=== PATIENT | female | born 1935 | race Caucasian/White ===

== ENCOUNTER → 2016-11-26 | Outpatient (CLI) | payer MEDICARE ==
[2016-11-26 13:10] LABS: Basophils # (A) 0.1 k/uL (0-0.2); Basophils % (A) 1 %; CHCM 31.7; Eosinophils # (A) 0.1 k/uL (0-0.7); Eosinophils % (A) 2 %; HCT 37.3 % (34.0-46.0); HDW 2.57; HGB 12.1 gm/dL (11.4-16.0); Luc # (Auto) 0.15; Luc % (Auto) 2; Lymphocytes # (A) 1.2 k/uL (1.0-4.8); Lymphocytes % (A) 18 %; MCH 30.9 pg (25.0-35.0); MCHC 32.5 g/dL (31.0-37.0); Mean Platelet Volume 8.6; Monocytes # (A) 0.4 k/uL (0-1.0); Monocytes % (A) 5 %; Neutrophils # (A) 4.9 k/uL (1.3-7.7); Neutrophils % (A) 72 %; RBC 3.93 m/uL (3.80-5.40); RDW 13.4 % (11.5-15.5); WBC 6.7 k/uL (3.8-10.6); WBC (Perox) 7.38
[2016-11-26 13:16] LABS: INR 1.2 (<1.1); Partial Thromboplastin Time 27.6 sec (22.0-30.0); Prothrombin Time 11.6 sec (9.0-12.0)
[2016-11-26 13:28] LABS: ALT 23 U/L (9-52); AST 19 U/L (14-36); Alkaline Phosphatase 74 U/L (38-126); Anion Gap 10 mmol/L; Blood Urea Nitrogen 18 mg/dL (7-17); Carbon Dioxide 30 mmol/L (22-30); Chloride 103 mmol/L (98-107); Glucose 69 mg/dL (74-99); Non-African American GFR(MDRD) >60 (>60 ml/min/1.73 sqM); Potassium 5.1 mmol/L (3.5-5.1); Sodium 143 mmol/L (137-145); Total Bilirubin 0.6 mg/dL (0.2-1.3); Total Protein 7.4 g/dL (6.3-8.2)
[2016-11-26 14:48] LABS: Amorphous Sediment,Urine Rare /hpf; Appearance,Urine Clear (Clear); Bacteria,Urine Many /hpf; Bilirubin,Urine Negative (Negative); Glucose,Urine (UA) Negative (Negative); Ketones,Urine Negative (Negative); Leukocyte Esterase,Urine Small (Negative); Nitrite,Urine Negative (Negative); Particle Count 15703; Protein,Urine Negative (Negative); RBC,Urine 4 /hpf (0-5); Squamous Epithelial Cell,Urine 2 /hpf (0-4); UA Billing (MACRO vs. MICRO) MICRO; Urobilinogen,Urine <2.0 mg/dL (<2.0); WBC,Urine 2 /hpf (0-5)
== END | disposition home or self-care (01) ==
LOC: LABPAT 12:27
PROVIDERS: ATTEND Orthopaedic Surgery
DX: Z01.810 Encounter for preprocedural cardiovascular examination (principal); Z01.818 Encounter for other preprocedural examination
CPT/HCPCS: 36415; 80053; 81001; 85025; 85610; 85730; 87070

== ENCOUNTER 2016-12-07 11:42 | Inpatient (IN) | payer MEDICARE ==
[2016-12-01 16:12] VITALS: BMI 40.3
[~2016-12-07 11:42] MED LIST: ACETAMINOPHEN TAB 500 MG TAB PO ONE; DEXAMETHASONE SOD PHOSPHATE 10 MG/ML 1 ML VIAL IV ONE; FAMOTIDINE 20 MG/2 ML VIAL IV PRN; LACTATED RINGERS 1,000 ML IV SCH; LIDOCAINE 1% 20 ML VIAL (10MG/ML) FOR IV START INTRADERMA PRN; MELOXICAM 7.5 MG TAB PO ONE; MIDAZOLAM 2 MG/2 ML VIAL IV PRN; ONDANSETRON 4 MG/2 ML VIAL IVP ONE; ROPIVACAINE 246.25 MG, EPINEPHrine 0.5 MG, KETOROLAC 30 MG, cloNIDine HCL/PF 80 MCG, WA... MISCELLANE ONE; TRANEXAMIC ACID 1,000 MG in SODIUM CHLORIDE 0.9% 100 ML IVPB ONE; ceFAZolin 2 GM in SODIUM CHLORIDE 0.9% 100 ML IVPB ONE
[2016-12-07] MEDS ORDERED: LIDOCAINE 1% INJ 10MG/ML (20 ML MDV) ONE (13:53)
[2016-12-07] MEDS ORDERED: TRANEXAMIC ACID 1,000 MG/10 ML VIAL ONE (13:53)
[2016-12-07] MEDS ORDERED: fentaNYL (PF) 50 MCG/ML 2 ML AMP ONE (13:53)
[2016-12-07] MEDS ORDERED: PHENYLEPHRINE-0.9% NACL SYG 1 MG/10 ML SYRINGE ONE (13:53)
[2016-12-07] MEDS ORDERED: MIDAZOLAM 2 MG/2 ML VIAL ONE (13:53)
[2016-12-07] MEDS ORDERED: PROPOFOL 10 MG/ML 20 ML VIAL IV ONE (13:53)
[2016-12-07] MEDS ORDERED: SUCCINYLCHOLINE CHLORIDE 100 MG/5 ML SYR IV ONE (13:53)
[2016-12-07] MEDS ORDERED: NEOSTIGMINE 1 MG/ML 10 ML VIAL ONE (13:53)
[2016-12-07] MEDS ORDERED: SODIUM CHLORIDE 0.9% 100 ML BAG ONE (13:53)
[2016-12-07] MEDS ORDERED: ROCURONIUM BROMIDE 10 MG/ML 10 ML VIAL IV ONE (13:53)
[2016-12-07] MEDS ORDERED: GLYCOPYRROLATE 0.2 MG/ML 2 ML VIAL ONE (13:53)
[2016-12-07] MEDS ORDERED: ePHEDrine 50 MG/ML 1 ML AMP ONE (13:53)
[2016-12-07] MEDS ORDERED: HYDROmorphone (PF) 1 MG/ML ONE (13:53)
[2016-12-07] MEDS ORDERED: ceFAZolin 3,000 MG in SODIUM CHLORIDE 0.9% IRRIGATIO 3,000 ML IRRIGATION ONE (14:11)
[2016-12-07] MEDS ORDERED: LACTATED RINGERS 1,000 ML IV ONE ×2 (14:56→15:25)
[2016-12-07] MEDS ORDERED: ROPIVACAINE 1,100 MG, SODIUM CHLORIDE 0.9% 330 ML MISCELLANE PRN ×2 (15:37)
--- NOTE | 2016-12-07 15:39 | P.ONQ ---
Anesthesiology Proc Note - PNB - Peripheral Nerve Block Performed Left Adductor Canal Indication: Acute Post-Operative Pain, Requested by physician (Venkata Lancaster) Sedation Type: Sedate with meaningful contact maintained Preparation: Sterile Dressing Position: Supine Catheter: Indwelling Needle Types: On-Q Needle Size: 100mm (4") Needle Gauge: 20 Technique: Ultrasound Injectate: 0.5% Ropivacaine (see comment for volume) (20cc) Blood Aspirated: No Pain Paresthesia on Injection Noted: No Resistance on Injection: Normal Events: Uneventful and Well Tolerated
[2016-12-07] MEDS ORDERED: DIAZEPAM 5 MG TAB PO PRN ×2 (15:45)
[2016-12-07] MEDS ORDERED: NALOXONE 0.4 MG/ML 1 ML VIAL IV PRN (15:45)
[2016-12-07] MEDS ORDERED: hydrOXYzine PAMOATE 25 MG CAP PO PRN (15:45)
[2016-12-07] MEDS ORDERED: BISACODYL 10 MG SUPP RECTAL PRN (15:45)
[2016-12-07] MEDS ORDERED: HYDROcodone/APAP 5-325MG 1 EACH TAB PO PRN (15:45)
[2016-12-07] MEDS ORDERED: MAGNESIUM HYDROXIDE 2,400 MG/10 ML CUP PO PRN (15:45)
[2016-12-07] MEDS ORDERED: ONDANSETRON 4 MG/2 ML VIAL IVP PRN (15:45)
[2016-12-07] MEDS ORDERED: HYDROmorphone 1 MG/ML 1 ML SYRINGE IVP PRN ×3 (15:45)
[2016-12-07] MEDS: HYDROmorphone 1 MG/ML 1 ML SYRINGE IVP PRN ×4 (16:00→16:48)
--- NOTE | 2016-12-07 16:16 | XR ---
EXAMINATION TYPE: XR knee limited LT DATE OF EXAM: 12/07/2016 4:08 PM COMPARISON: NONE HISTORY: Post knee replacement TECHNIQUE: 2 view left knee FINDINGS: Tibial and femoral components have been placed. Postsurgical changes are within soft tissue s. No acute fractures are evident. IMPRESSION: 1. No acute fracture post knee replacement.
--- NOTE | 2016-12-07 16:23 | P.OP ---
Date of Procedure: 12/07/16 Preoperative Diagnosis: Severe osteoarthritis left knee Postoperative Diagnosis: Severe osteoarthritis left knee Procedure(s) Performed: Left total knee arthroplasty Implants: Robb and Nephew Oxinium femoral component size 6, left Robb & Nephew Sheila II left nonporous tibial baseplate size 6 Robb [employer] Nephew size 9 mm Legion XLPE dished articular insert, size 5-6 Robb [employer] Nephew Sheila II resurfacing patellar component, 32 mm All components were cemented using Estrellita bone cement.. The articulation is ceramic on polyethylene. Anesthesia: spinal Surgeon: Venkata Lancaster Supervisor [employer] Installation #1: Carina Mendez Estimated Blood Loss (ml): 50 Pathology: other (Bone and cartilage) Condition: stable Disposition: PACU Indications for Procedure: After failure of conservative treatment we discussed the surgical and nonsurgical treatment options at length. Patient wishes to proceed with a total knee arthroplasty. Complications specific to this procedure were discussed at length, including but not limited to infection, bleeding, stiffness , and nerve injury. Patient is aware of all these complications and informed consent was obtained Operative Findings: The findings are consistent with severe osteoarthritis of the left knee Description of Procedure: Patient was seen in the preoperative area consent was reviewed and operative site was marked with a skin marker. An adductor canal pain catheter was placed by anesthesia in the preoperative area. Patient was then brought to the operating room and given preoperative antibiotics intravenously. A spinal anesthetic was administered by the anesthesia department. A Taylor catheter was then placed by the nursing staff. A tourniquet was placed on the upper thigh and the lower extremity was prepped and draped in usual sterile fashion. A gram of transexamic acid was given. A universal timeout was then performed which confirmed the patient's name, surgical site, ALLERGIES, and consent. The lower extremity was then exsanguinated and tourniquet was inflated to 250 mmHg. A standard and anterior midline approach to the knee was performed. The skin and subcutaneous tissue was dissected down to the patellar tendon. A medial parapatellar arthrotomy was then performed. The knee was then extended, the patellar was everted, and the knee was again flexed. Anterior horns of both menisci were excised, and a very minimal release was performed to the posterior medial aspect of the knee, secondary to the valgus deformity of her knee.. On gross visual inspection, there was complete loss of articular cartilage in the medial, lateral, and patellofemoral joint spaces. There was also significant cartilage damage in the lateral compartment with a valgus deformity.. There were multiple periarticular osteophytes which were then removed with a Ronguer. The femoral canal was then opened with the appropriate drill, and the intramedullary femoral cutting guide was then placed and set for 4 of valgus. The distal femoral cutting block was then pinned in place, and the distal femur was then cut. The cutting block was then removed and the cut was checked for flatness. Next, the sizing guide was then placed and set for 3 external rotation based off of the epicondylar axis and Whitesides line. After the femur was sized, the appropriate 4-in-1 cutting block was then pinned in place. The anterior condyles were cut without notching. After the anterior condyles were cut, there was a large 3 x 3 cm defect in the anterior cortex of the distal femur. This was due to her very poor and osteoporotic bone. This was then bone grafted with autologous bone. The posterior and chamfer cuts were performed while protecting the collateral ligaments. The cutting block was then removed, and the femoral canal was plugged with autologous bone. Attention was then directed to the tibia. The remaining ACL was removed with a Ronguer, and the tibia was then gently subluxed forward with a large bent knee retractor. Any remaining menisci was excised. The posterior lateral corner was cauterized in order to cauterize the lateral geniculate artery. The extra medullary tibial cutting guide was then placed, set for the appropriate rotation , slope, and depth of resection. The proximal tibia cutting guide was then pinned in place. Proximal tibia was then cut and sized. Next trials were then placed with the appropriate-sized insert. The knee was able to fully extend and flex to 130 and was stable throughout all range of motion. The knee was then extended, patella everted. Patella was then measured, and then using an osteotomy guide, the patella was cut at the appropriate level. The patella was then measured and drilled and the patella trial was then placed. The knee was then taken through range of motion with the patella trial and the patella tracked normally. The knee was then extended patella trial was then removed and the patella was everted. Knee was then flexed and lug holes were drilled through the femoral trial and the femoral trial was then removed. The tibial was then exposed, and the tibial broach guide was then pinned in place after it was set for the appropriate rotation to allow for the most coverage without overhang. The tibia was then reamed and broached. The cut surfaces of bone were then irrigated with pulsatile lavage. The posterior structures were injected with the ropivacaine solution. The knee was also irrigated with Irrisept solution. The components were then opened, the cement was mixed, and the components were then cemented in place. The cement was allowed to harden with the knee in full extension. While the cement was hardening, the remaining soft tissues were then injected with a ropivacaine solution, which consisted of 246.25 mg of ropivacaine, 0.5 mg of epinephrine, 30 mg of Toradol, 80 g of clonidine, and 48.45 mL of sterile water, for a total of 100 mL of fluid injected. After the cemented hardened. The tourniquet was released, and hemostasis was obtained. A second gram of transexamic acid was given. The knee was again irrigated. The knee was again taken through range of motion and found to be stable throughout all range of motion of 0-130 , and the patella tracked normally. The fascia was then closed with #2 strata fix suture. The subcutaneous tissue was closed with 3-0 Vicryl and 3-0 strata fix. Dermabond tape was used for the skin and placed with the knee in flexion. The patient was placed in a sterile dressing. Patient was then transferred to recovery room in stable condition. The event marketing assistant ROBBIN Christensen was required due the complexity surgery and the need for a skilled painter assistant. She assisted in positioning, draping , retraction, and closure of the wound.
[2016-12-07] MEDS ORDERED: DOCUSATE 100 MG CAP PO PRN (17:42)
[2016-12-07] MEDS: METOPROLOL SUCCINATE (ER) 25 MG TAB.ER.24H PO SCH (20:20)
[2016-12-07] MEDS: ANASTROZOLE 1 MG TAB PO SCH (20:20)
[2016-12-07] MEDS: SENNOSIDES-DOCUSATE SODIUM 1 EACH TAB PO SCH (20:20)
[2016-12-07] MEDS: NIFEdipine XL 30 MG TAB.ER.24 PO SCH (20:20)
[2016-12-07] MEDS: APIXABAN 5 MG TAB PO SCH (20:20)
[2016-12-07] MEDS: LOSARTAN 25 MG TAB PO SCH (20:20)
[2016-12-07] MEDS ORDERED: NON-FORMULARY DRUG (Ubidecarenone [Co Q-10] 200 MG) PO SCH (21:00)
--- NOTE | 2016-12-07 21:01 | CONS ---
DATE OF CONSULTATION: REASON FOR CONSULTATION: Management of anticoagulation. HISTORY OF PRESENTING ILLNESS: This is a 81-year-old lady with severe osteoarthritis of her knees. She comes into the hospital for elective left knee replacement. Patient was seen postoperatively. Patient has a history of deep venous thrombosis, currently maintained on apixaban 5 mg p.o. b.i.d. Denies having any history of pulmonary embolism in the past. Patient states that she does not feel any pain. Denies having any headaches, blurry vision, nausea, vomiting, chest pain, difficulty in breathing, abdominal pain, urinary urgency or frequency. Patient currently does have a Taylor catheter in place. Patient's cardiac history includes hypertension. 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 Past medical history includes: 1. Essential hypertension. 2. Deep venous thrombosis. 3. Osteoarthritis. 4. Aortic stenosis. 5. Major depression. 6. Vitamin D insufficiency. 7. Overactive bladder. 8. History of right breast cancer, currently maintained on maintenance Arimidex. ALLERGIES: 1. CAFFEINE. 2. WARFARIN. 3. ERYTHROMYCIN BASE. 4. NITRATE ANALOGS. Home medications include: 1. Zinc. 2. Vitamin E. 3. Multivitamin. 4. Effexor. 5. Co-Q10. 6. Turmeric root. 7. Procardia XL. 8. Myrbetriq. 9. Toprol XL. 10. Losartan. 11. Lutein. 12. Arimidex. 13. Apixaban. 14. Acetaminophen. 15. Vitamin D3. 16. Colace. 17. [place] 10/325. Doses were reviewed and medications were appropriately reconciled thereafter. PAST SURGICAL HISTORY: Breast surgery in the past. REVIEW OF SYSTEMS: Fourteen-point review of system was done; none pertinent other than as mentioned in HPI FAMILY HISTORY: Not pertinent to the current admission. SOCIAL HISTORY: Patient currently lives with her . Denies smoking. No alcohol or other illicit drug use. PHYSICAL EXAM: VITALS: Temperature is 97.6, heart rate 84, respiratory rate 16. Blood pressure 142/60. Saturating 93% on 4 L of oxygen. GENERAL APPEARANCE: Alert and oriented x3. In no distress. HEAD: Atraumatic, normocephalic. Pupils are equal, round and reactive to light and accommodation. Neck is supple. No JVD. LUNGS: Good air movement. Clear to auscultation. No rhonchi or wheezing appreciated. HEART: S1, S2 heard. A systolic murmur is predominantly appreciated in the aortic region. ABDOMEN: Soft, nontender. No organomegaly. Bowel sounds intact. LOWER EXTREMITIES: A bandage is noted over the left knee. There is joint space tenderness on the right knee as well. NEUROLOGICAL EXAMINATION: No focal deficits appreciated. Laboratory data include potassium 4.5. ASSESSMENT AND PLAN: 1. Severe osteoarthritis, status post left knee replacement. 2. History of deep venous thrombosis. 3. Essential hypertension. 4. Aortic stenosis. 5. History of breast cancer, currently maintained on anastrozole for hormone maintenance. 6. Major depression. 7. Vitamin D insufficiency. 8. Overactive bladder. 9. Acute hypoxic respiratory failure, as expected. PLAN: Continue ongoing care. Titrate off oxygen as tolerated. Encourage incentive spirometer. Pain management per you. In regards to anticoagulation, patient will be restarted on apixaban 5 mg b.i.d., as long as Orthopedics does not have any contraindications regarding timing of starting it today. Blood pressures were stable. Thank you for the consultation. Will follow the patient along with you.
[2016-12-07] MEDS: ceFAZolin 2 GM in SODIUM CHLORIDE 0.9% 100 ML IVPB SCH (23:28)
[2016-12-07] MEDS: SODIUM CHLORIDE 0.9% 1,000 ML IV SCH (23:32)
[2016-12-08] MEDS: HYDROcodone/APAP 5-325MG 1 EACH TAB PO PRN ×4 (04:29→21:32)
[2016-12-08 08:21] LABS: Basophils % (A) 0 %; CH 29.5; CHCM 29.7; Eosinophils % (A) 0 %; HCT 30.9 % (34.0-46.0); HDW 2.52; Hypochromasia Marked; Luc # (Auto) 0.19; Luc % (Auto) 2; Lymphocytes # (A) 0.9 k/uL (1.0-4.8); Lymphocytes % (A) 8 %; MCH 31.7 pg (25.0-35.0); MCHC 31.7 g/dL (31.0-37.0); MCV 99.8 fL (80.0-100.0); Mean Platelet Volume 8.4; Monocytes # (A) 0.8 k/uL (0-1.0); Monocytes % (A) 7 %; Neutrophils # (A) 8.8 k/uL (1.3-7.7); Neutrophils % (A) 82 %; RBC 3.09 m/uL (3.80-5.40); RDW 13.3 % (11.5-15.5); WBC 10.7 k/uL (3.8-10.6); WBC (Perox) 10.69
[2016-12-08 08:27] LABS: HGB 9.8 gm/dL (11.4-16.0)
[2016-12-08] MEDS: VENLAFAXINE HCL ER 150 MG CAP PO SCH (08:45)
[2016-12-08] MEDS: VITAMIN E (DL,TOCOPHERYL ACET) 400 UNIT CAP PO SCH (08:45)
[2016-12-08] MEDS: APIXABAN 5 MG TAB PO SCH ×2 (08:45→20:09)
[2016-12-08] MEDS: METOPROLOL SUCCINATE (ER) 25 MG TAB.ER.24H PO SCH ×2 (08:45→20:09)
[2016-12-08] MEDS: LOSARTAN 25 MG TAB PO SCH ×2 (08:45→20:09)
[2016-12-08] MEDS: VIT A,C & E-LUTEIN-MINERALS 1 EACH TAB PO SCH (08:45)
[2016-12-08] MEDS: OXYBUTYNIN 10 MG TAB.ER.24 PO SCH (08:46)
[2016-12-08] MEDS: ceFAZolin 2 GM in SODIUM CHLORIDE 0.9% 100 ML IVPB SCH (08:46)
[2016-12-08] MEDS: CHOLECALCIFEROL 1,000 UNIT TAB PO SCH (08:46)
--- NOTE | 2016-12-08 08:48 | P.PN ---
Subjective Principal diagnosis: status post left total knee arthroplasty This is a pleasant 81-year-old female who is status post left total knee arthroplasty. Today is postoperative day #1. The patient is seen and evaluated at bedside with Dr. Venkata Lancaster. The patient has not yet been up with physical therapy. Her pain is under fair control. She has no new complaints at this time. Objective - Vital Signs Vital signs: Vital Signs Temp 98.5 F 12/08/16 07:00 Pulse 88 12/08/16 02:00 Resp 16 12/08/16 07:00 BP 131/62 12/08/16 07:00 Pulse Ox 95 12/08/16 07:00 Intake & Output 12/07/16 12/08/16 12/08/16 18:59 06:59 18:59 Intake Total 3001 550 Output Total 275 380 900 Balance 2726 170 -900 Weight 106.594 kg Intake: IV 2401 Intake, IV Titration 100 Amount Sodium Chloride 0.9% 1, 100 000 ml @ 50 mls/hr IV . Q20H [facility] Rx#:[id number] Oral 600 450 Output: Urine 225 380 900 Uretheral (Taylor) 900 Estimated Blood Loss 50 Other: Voiding Method Indwelling Catheter Indwelling Catheter - Exam The patient does not appear in acute distress. Alert and orientated 3. Dressing is clean dry and intact. Incision appears fine with no erythema or active drainage. Calf is soft and nontender. Good foot and ankle motion without difficulty. Sensation and circulatory status is intact. - Labs CBC & Chem 7: 12/08/16 06:37 12/07/16 12:40 Labs: Abnormal Lab Results - Last 24 Hours (Table) 12/08/16 Range/Units 06:37 WBC 10.7 H (3.8-10.6) k/uL RBC 3.09 L (3.80-5.40) m/uL Hgb 9.8 L D (11.4-16.0) gm/dL Hct 30.9 L (34.0-46.0) % Assessment and Plan (1) Primary osteoarthritis of left knee Status: Acute (2) Status post left knee replacement Status: Acute Plan: 1. Continue with routine postoperative care. 2. Anticoagulation with Eliquis as directed by medicine 3. Physical therapy and CPM today. 4. Appreciate input from medicine. 5. Anticipate discharge to home with home care likely tomorrow.
[2016-12-08 08:49] LABS: Appearance,Urine Clear (Clear); Bilirubin,Urine Negative (Negative); Glucose,Urine (UA) Negative (Negative); Ketones,Urine Negative (Negative); Leukocyte Esterase,Urine Trace (Negative); Mucus,Urine Rare /hpf; Nitrite,Urine Negative (Negative); PH, Urine 5.5 (5.0-8.0); Particle Count 997; Protein,Urine Negative (Negative); RBC,Urine 4 /hpf (0-5); Specific Gravity,Urine 1.013 (1.001-1.035); UA Billing (MACRO vs. MICRO) MICRO; Urobilinogen,Urine <2.0 mg/dL (<2.0); WBC,Urine 3 /hpf (0-5)
--- NOTE | 2016-12-08 09:15 | P.PN ---
Progress Note - Text The patient is status post left adductor canal catheter placement. The catheter was placed for postoperative pain control, status post total left arthroplasty. Ropivacaine 0.2% is infusing at 8 mLs per hour. The patient has no complaints of left lower extremity numbness or weakness. Patient's VAS score is 1-2-10. Assessment: Patient's adductor canal catheter is in place and working appropriately. Plan: continue infusion and adjust it as needed.
[2016-12-08 14:28] LABS: Large Platelets Present; Manual Review Performed
[2016-12-08] MEDS: SODIUM CHLORIDE 0.9% 1,000 ML IV SCH (20:01)
[2016-12-08] MEDS: ANASTROZOLE 1 MG TAB PO SCH (20:08)
[2016-12-08] MEDS: NIFEdipine XL 30 MG TAB.ER.24 PO SCH (20:09)
[2016-12-08] MEDS: SENNOSIDES-DOCUSATE SODIUM 1 EACH TAB PO SCH (20:10)
[2016-12-09] MEDS: HYDROcodone/APAP 5-325MG 1 EACH TAB PO PRN ×2 (05:34→20:11)
--- NOTE | 2016-12-09 08:07 | P.DS ---
Providers Date of admission: 12/07/16 12:08 Expected date of discharge: 12/09/16 Attending physician: Venkata Lancaster Consults: 12/07/16 15:45 Consult Physician Routine Consulting Provider: Barbara Estevez Consult Reason/Comments: medical management and anticoagulation Do you want consulting provider notified?: Yes Primary care physician: Rodolfo Hewitt - Discharge Diagnosis(es) (1) Primary osteoarthritis of left knee Current Visit: Yes Status: Acute (2) Status post left knee replacement Current Visit: Yes Status: Acute Hospital Course: This is a pleasant 81-year-old female last seen in our office with complaints of left knee pain. Patient has known history of degenerative arthritis of the left knee and presented to discuss options. After discussion and consideration , the patient elected to proceed with a left total knee arthroplasty. Patient was seen preoperatively, and medically cleared for surgery by her primary care physician. Patient was admitted to [facility] underwent left total knee arthroplasty on 12/07/[address] Venkata Lancaster. The procedure was performed without complications or sequelae. The patient is seen and evaluated at bedside today. Pain is well-controlled. Patient has no new complaints today and denies any fevers, chills, nausea, vomiting, or shortness of breath. Vital signs are stable. Dressing is clean dry and intact. Incision looks fine with no erythema or active drainage. Calf is soft and nontender. Patient has full foot and ankle motion without difficulty. Patient's left lower extremity is neurovascularly intact. The patient is orthopedically stable for discharge home today. Pertinent Studies: Laboratory Tests 12/08/16 06:37 WBC 10.7 H RBC 3.09 L Hgb 9.8 L D Patient Condition at Discharge: Stable Plan - Discharge Summary New Discharge Prescriptions: Hydrocodone/Acetaminophen [[place] 5-325] 1 - 2 each PO Q6HR PRN #90 tab PRN Reason: Pain Sennosides-Docusate Sodium [Senokot-S] 2 tab PO DAILY #60 tablet Discharge Medication List Docusate [Colace] 100 mg PO DAILY PRN 12/02/16 [History] Acetaminophen [Tylenol] 500 mg PO Q4-6H PRN 12/03/16 [History] Anastrozole [Arimidex] 1 mg PO HS 12/03/16 [History] Apixaban [Eliquis] 5 mg PO BID 12/03/16 [History] Cholecalciferol [Vitamin D3] 2,000 unit PO DAILY 12/03/16 [History] HYDROcodone/APAP 10-325MG [[place] 10-325] 1 tab PO BID PRN 12/03/16 [History] Losartan Potassium [Cozaar] 25 mg PO BID 12/03/16 [History] Metoprolol Succinate (ER) [Toprol Xl] 25 mg PO BID 12/03/16 [History] Mirabegron [Myrbetriq] 50 mg PO DAILY 12/03/16 [History] NIFEdipine XL [Procardia Xl] 30 mg PO HS 12/03/16 [History] Turmeric Root Extract [Turmeric] 500 mg PO DAILY 12/03/16 [History] Ubidecarenone [Co Q-10] 200 mg PO HS 12/03/16 [History] Venlafaxine HCl [Effexor XR] 150 mg PO QAM 12/03/16 [History] Vit A,C & E/Lutein/Minerals [Ocuvite with Lutein Tablet] 1 tab PO DAILY [History] Vitamin E (Dl,Tocopheryl Acet) [Vitamin E] 400 unit PO DAILY 12/03/16 [History] Zinc 50 mg PO DAILY 12/03/16 [History] Lutein 6mg 6 mg PO DAILY 12/07/16 [History] Hydrocodone/Acetaminophen [[place] 5-325] 1 - 2 each PO Q6HR PRN #90 tab 12/08/16 [Rx] Sennosides-Docusate Sodium [Senokot-S] 2 tab PO DAILY #60 tablet 12/08/16 [Rx] Follow up Appointment(s)/Referral(s): Venkata Lancaster DO [Doctor of Osteopathic Medicine] - 2 Weeks Ambulatory/Diagnostic Orders: Continuous Passive Motion (CPM) Machine [DME.AMB1] Location: Determined By Patient Activity/Diet/Wound Care/Special Instructions: Weightbearing as tolerated with a walker CPM daily Daily dressing changes, keep incision clean and dry Anticoagulation with Eliquis as directed by medicine [facility] with questions or concerns [phone] [facility] [phone] [id number] [phone] Discharge Disposition: HOME WITH HOME HEALTH SERVICES
[2016-12-09] MEDS: SODIUM CHLORIDE 0.9% 1,000 ML IV SCH (08:35)
[2016-12-09] MEDS: CHOLECALCIFEROL 1,000 UNIT TAB PO SCH (08:37)
[2016-12-09] MEDS: APIXABAN 5 MG TAB PO SCH ×2 (08:37→20:15)
[2016-12-09] MEDS: VENLAFAXINE HCL ER 150 MG CAP PO SCH (08:37)
[2016-12-09] MEDS: METOPROLOL SUCCINATE (ER) 25 MG TAB.ER.24H PO SCH ×2 (08:37→20:15)
[2016-12-09] MEDS: VIT A,C & E-LUTEIN-MINERALS 1 EACH TAB PO SCH (08:38)
[2016-12-09] MEDS: OXYBUTYNIN 10 MG TAB.ER.24 PO SCH (08:38)
[2016-12-09] MEDS: LOSARTAN 25 MG TAB PO SCH ×2 (08:38→20:15)
[2016-12-09] MEDS: VITAMIN E (DL,TOCOPHERYL ACET) 400 UNIT CAP PO SCH (08:38)
--- NOTE | 2016-12-09 11:14 | P.PN ---
Progress Note - Text 1803 anesthesia POD #2. Patient is status post left TKR under spinal anesthesia with a left adductor canal catheter placed for postoperative pain relief. Currently 0.2% ropivacaine is infusing at 8 mL per hour. Catheter site is intact clean and dry. Patient's VAS is 3, 7. Plan to increase infusion rate to 10 mL per hour.
[2016-12-09 15:57] VITALS: RESP 16
[2016-12-09] MEDS: ANASTROZOLE 1 MG TAB PO SCH (20:15)
[2016-12-09] MEDS: NIFEdipine XL 30 MG TAB.ER.24 PO SCH (20:15)
[2016-12-09] MEDS: SENNOSIDES-DOCUSATE SODIUM 1 EACH TAB PO SCH (20:15)
[2016-12-10] MEDS: HYDROcodone/APAP 5-325MG 1 EACH TAB PO PRN ×2 (02:40→11:01)
[2016-12-10] MEDS: SODIUM CHLORIDE 0.9% 1,000 ML IV SCH (03:48)
[2016-12-10 07:43] LABS: Basophils % (A) 0 %; CH 30.2; CHCM 31.5; Eosinophils # (A) 0.1 k/uL (0-0.7); Eosinophils % (A) 2 %; HCT 27.8 % (34.0-46.0); HDW 2.48; HGB 8.9 gm/dL (11.4-16.0); Luc % (Auto) 3; Lymphocytes # (A) 0.8 k/uL (1.0-4.8); Lymphocytes % (A) 12 %; MCH 30.9 pg (25.0-35.0); MCHC 32.1 g/dL (31.0-37.0); MCV 96.3 fL (80.0-100.0); Mean Platelet Volume 8.3; Monocytes # (A) 0.5 k/uL (0-1.0); Monocytes % (A) 8 %; Neutrophils # (A) 5.4 k/uL (1.3-7.7); Neutrophils % (A) 76 %; RBC 2.89 m/uL (3.80-5.40); RDW 13.6 % (11.5-15.5); WBC 7.1 k/uL (3.8-10.6); WBC (Perox) 7.23
[2016-12-10] MEDS: LOSARTAN 25 MG TAB PO SCH (07:45)
[2016-12-10] MEDS: CHOLECALCIFEROL 1,000 UNIT TAB PO SCH (07:48)
[2016-12-10] MEDS: METOPROLOL SUCCINATE (ER) 25 MG TAB.ER.24H PO SCH (07:48)
[2016-12-10] MEDS: VITAMIN E (DL,TOCOPHERYL ACET) 400 UNIT CAP PO SCH (07:48)
[2016-12-10] MEDS: OXYBUTYNIN 10 MG TAB.ER.24 PO SCH (07:48)
[2016-12-10] MEDS: APIXABAN 5 MG TAB PO SCH (07:49)
[2016-12-10] MEDS: VENLAFAXINE HCL ER 150 MG CAP PO SCH (07:49)
[2016-12-10] MEDS: VIT A,C & E-LUTEIN-MINERALS 1 EACH TAB PO SCH (07:49)
--- NOTE | 2016-12-10 08:21 | P.PN ---
Subjective Principal diagnosis: status post left total knee arthroplasty This is a pleasant 81-year-old female who is status post left total knee arthroplasty. Today is postoperative day #3. The patient is seen and evaluated at bedside. She has been up walking with physical therapy. Her pain is under fair control. She has no new complaints at this time. Objective - Vital Signs Vital signs: Vital Signs Temp 98.2 F 12/10/16 07:00 Pulse 96 12/10/16 07:00 Resp 16 12/10/16 07:00 BP 109/69 12/10/16 07:00 Pulse Ox 95 12/10/16 07:00 Intake & Output 12/09/16 12/10/16 12/10/16 18:59 06:59 18:59 Intake Total 700 322 Output Total 380 Balance 320 322 Weight 106.594 kg Intake: Oral 700 322 Output: Urine 380 Other: Voiding Method Toilet Toilet # Voids 3 2 - Exam The patient does not appear in acute distress. Alert and orientated 3. Dressing is clean dry and intact. Incision appears fine with no erythema or active drainage. Calf is soft and nontender. Good foot and ankle motion without difficulty. Sensation and circulatory status is intact. - Labs CBC & Chem 7: 12/10/16 06:50 12/07/16 12:40 Labs: Abnormal Lab Results - Last 24 Hours (Table) 12/10/16 Range/Units 06:50 RBC 2.89 L (3.80-5.40) m/uL Hgb 8.9 L (11.4-16.0) gm/dL Hct 27.8 L (34.0-46.0) % Plt Count 114 L (150-450) k/uL Lymphocytes # 0.8 L (1.0-4.8) k/uL Microbiology - Last 24 Hours (Table) 12/08/16 08:00 Urine Culture - Final Urine,Catheterized Assessment and Plan (1) Primary osteoarthritis of left knee Status: Acute (2) Status post left knee replacement Status: Acute Plan: 1. Continue with routine postoperative care. 2. Anticoagulation with Eliquis as directed by medicine 3. Physical therapy and CPM today. 4. Appreciate input from medicine. 5. Anticipate discharge to home today with home care. Please refer to discharge summary is dictated yesterday.
[2016-12-10 13:51] VITALS: BP 103/62; PULSE 85; TEMP 98.6
== END 2016-12-10 16:06 | disposition home health service (06) | DRG 470 ==
LOC: 2ORMAIN 12:08 → 3SUR 15:42
PROVIDERS: ADMIT Orthopaedic Surgery; ATTEND Orthopaedic Surgery
PROC: 0SRD0J9 Replacement of Left Knee Joint with Synthetic Substitute, Cemented, Open Approach (ICD-10-PCS; principal; 2016-12-07 13:50)
DX: M17.12 Unilateral primary osteoarthritis, left knee (principal); G62.9 Polyneuropathy, unspecified; I35.0 Nonrheumatic aortic (valve) stenosis; I10 Essential (primary) hypertension; M25.762 Osteophyte, left knee; M21.062 Valgus deformity, not elsewhere classified, left knee; E78.5 Hyperlipidemia, unspecified; M48.00 Spinal stenosis, site unspecified; R26.9 Unspecified abnormalities of gait and mobility; I83.90 Asymptomatic varicose veins of unspecified lower extremity; I73.9 Peripheral vascular disease, unspecified; G89.29 Other chronic pain; E55.9 Vitamin D deficiency, unspecified; F32.9 Major depressive disorder, single episode, unspecified; N32.81 Overactive bladder; H35.30 Unspecified macular degeneration; H91.90 Unspecified hearing loss, unspecified ear; Z90.11 Acquired absence of right breast and nipple; Z88.8 Allergy status to other drugs, medicaments and biological substances; Z88.1 Allergy status to other antibiotic agents; Z79.01 Long term (current) use of anticoagulants; Z85.3 Personal history of malignant neoplasm of breast; Z86.718 Personal history of other venous thrombosis and embolism; Z91.02 Food additives allergy status; Z79.810 Long term (current) use of selective estrogen receptor modulators (SERMs); Z79.891 Long term (current) use of opiate analgesic; Z79.899 Other long term (current) drug therapy; Z90.49 Acquired absence of other specified parts of digestive tract; Z82.3 Family history of stroke; Z83.3 Family history of diabetes mellitus; Z82.49 Family history of ischemic heart disease and other diseases of the circulatory system
CPT/HCPCS: 81001; 84132; 85025; 87086; 88300